=== PATIENT | female | born 1990 | race Caucasian/White ===

== ENCOUNTER 2016-06-30 10:53 | Emergency (ER) | payer OTHER ==
[~2016-06-30] VITALS: Ht 154.9 cm; Wt 65.8 kg
[2016-06-30 10:55] VITALS: BP 129/81
[2016-06-30] MEDS ORDERED: OXYcodone/APAP 5/325MG TABLET PO ONE (11:30)
[2016-06-30] MEDS ORDERED: OXYcodone/APAP 5/325MG TABLET ONE (11:30)
== END 2016-06-30 12:16 | disposition home or self-care (01) ==
LOC: ED 12:10
DX: S63.501A Unspecified sprain of right wrist, initial encounter (principal); S50.11XA Contusion of right forearm, initial encounter; W11.XXXA Fall on and from ladder, initial encounter; Y93.E9 Activity, other interior property and clothing maintenance; Y92.69 Other specified industrial and construction area as the place of occurrence of the external cause; Y99.0 Civilian activity done for income or pay
CPT/HCPCS: 29125

== ENCOUNTER 2016-07-02 10:08 | Emergency (ER) | payer OTHER ==
[~2016-07-02] VITALS: Ht 152.4 cm; Wt 65.8 kg
[2016-07-02 10:10] VITALS: BP 119/75
== END 2016-07-02 11:29 | disposition home or self-care (01) ==
LOC: ED 11:23
DX: S60.211A Contusion of right wrist, initial encounter (principal); S50.11XA Contusion of right forearm, initial encounter; S60.221A Contusion of right hand, initial encounter; S63.501A Unspecified sprain of right wrist, initial encounter; X58.XXXA Exposure to other specified factors, initial encounter; Y93.89 Activity, other specified; Y92.69 Other specified industrial and construction area as the place of occurrence of the external cause; Y99.9 Unspecified external cause status
CPT/HCPCS: 99283

== ENCOUNTER 2016-08-23 10:44 | Emergency (ER) | payer OTHER ==
[~2016-08-23] VITALS: Ht 165.1 cm; Wt 66.0 kg
[2016-08-23] MEDS ORDERED: SODIUM CHLORIDE 0.9% 1,000 ML IV ONE (11:42)
[2016-08-23 11:52] LABS: BLOOD UREA NITROGEN 10 mg/dL (7-18)
[2016-08-23] MEDS ORDERED: SODIUM CHLORIDE FLUSH 10ML SYR IVF ONE (12:00)
[2016-08-23] MEDS ORDERED: SODIUM CHLORIDE 0.9% 1,000ML IVBOLUS ONE (12:00)
[2016-08-23] MEDS ORDERED: ONDANSETRON 2MG/ML, 2ML IVPush ONE (12:00)
[2016-08-23] MEDS ORDERED: ONDANSETRON 2MG/ML, 2ML ONE (12:10)
[2016-08-23] MEDS ORDERED: OXYC10TA6 PO (13:19)
[2016-08-23 15:24] VITALS: BP 113/64
== END 2016-08-23 15:26 | disposition home or self-care (01) ==
LOC: ED 15:10
DX: R11.2 Nausea with vomiting, unspecified (principal); T40.2X5A Adverse effect of other opioids, initial encounter; Y92.9 Unspecified place or not applicable
CPT/HCPCS: 36415; 71010; 80048; 81001; 82040; 83605; 84145; 84703; 85025; 87040; 87086; 93005; 96361; 96374; 99285; J2405; J7030